=== PATIENT | male | born 1980 | race Caucasian/White ===

== ENCOUNTER 2022-12-14 15:36 | Emergency (ER) | payer OTHER, SELFPAY ==
--- NOTE | ~2022-12-14 | XR_ITS ---
XR ankle LT min 3V 12/14/2022 15:59 Indication: Status post fall from curb. Left lateral ankle pain and swelling Procedure: 4 views left ankle Comparison: No prior studies for comparison. Findings: There is an avulsion fracture from the distal aspect of the fibula. Large amount of lateral soft tissue swelling. Ankle mortise intact. There is a degenerative calcaneal enthesophyte. Talar do me is normal. Impression: 1: Linear avulsion fracture fragment projects adjacent to the distal aspect of the fibula. Large amou nt of adjacent soft tissue swelling. Reviewed, dictated and finalized at location L. Impression: 1: Linear avulsion fracture fragment projects adjacent to the distal aspect of the fibula. Large amount of adjacent soft tissue swelling.
--- NOTE | 2022-12-14 15:40 | ED.LOWEXIN ---
HPI - Extremity Injury (Lower) General Chief Complaint: Extremity Injury, Lower Stated Complaint: lt ankle injury Time Seen by Provider: 12/14/22 16:15 Source: patient, RN notes reviewed and old records reviewed Mode of arrival: ambulatory Limitations: no limitations History of Present Illness HPI Narrative: 42-year-old male presents to the [facility] after rolling his ankle after stepping off a curb. Left lateral ankle pain, swelling, bruising noted. States that he was at school when he stepped off the curb rolling his ankle Inward. pain with standing. Positive pedal pulse. Sensation intact in all 5 toes. Capillary refill under 2 seconds. Denies falling, hitting head. No hip or knee pain. No posterior calf pain. Injury: Left: ankle Related Data Home Medications Medication Instructions Recorded Confirmed cetirizine 10 mg tablet (Zyrtec) 10 mg PO DAILY 01/06/21 12/14/22 simvastatin 5 mg tablet 5 mg PO DAILY 01/06/21 12/14/22 Allergies Allergy/AdvReac Type Severity Reaction Status Date / Time No Known Allergies Allergy Mild Verified 12/14/22 15:50 Review of Systems Review of Systems: All systems reviewed & are unremarkable except as noted in HPI and below Constitutional: Constitutional: Reports no additional constitutional complaints Eyes: Eyes: Reports no additional eye complaints ENT: Reports system reviewed and no additional complaints, except as documented Cardiovascular: Cardiovascular: Reports no additional cardiovascular complaints, Denies chest pain and Denies dyspnea Respiratory: Respiratory: Reports no additional respiratory complaints, Denies chest congestion, Denies cough and Denies dyspnea Gastrointestinal: Gastrointestinal: Reports no additional gastrointestinal complaints, Denies abdominal pain, Denies nausea and Denies vomiting Musculoskeletal: Musculoskeletal: Reports as per HPI, Reports arthralgias ( left lateral ankle) and Reports joint swelling ( left lateral ankle) Integumentary/Breasts: Skin/Breast: Reports system reviewed and no additional complaints, except as docu Neurologic: Reports system reviewed and no additional complaints, except as documented Psychiatric: Psychiatric: Reports no additional psychiatric complaints Allergic/Immunologic: Allergic/Immunologic: Reports no additional allergic/immunologic complaints [facility] Family History Family History Father Heart problem Mother Hypertension Social History Social History Alcohol intake: current Substance use: never Comments At the time of my signature, I reviewed and agree with the nursing past medical, surgical, social, and family history. There is no relevant family history pertinent to the patient complaint. Exam Const: General: cooperative, healthy appearing, comfortable, no acute distress, well developed, alert and well nourished Nutritional Appearance: well nourished Orientation/consciousness: patient oriented x3 Limitations: no limitations HENMT: Head: normal to inspection Ears: hearing grossly normal bilaterally and external ears normal Face/Nose/Sinus: Normal external nose present, Normal nares present, Normal nasal mucous membranes and turbinates present and normal facial exam Face and sinus: normal facial exam Eyes: General: appearance normal, both eyes and all related structures Alignment and Position: alignment normal Periorbital: periorbital findings normal Pupils: Equal, round and reactive pupils present EOM: EOMs intact bilaterally Neck: Neck: normal visual inspection, full ROM, no lymphadenopathy and no meningeal signs Chest: Chest palpation & inspection: normal inspection of the chest Resp: Effort & Inspection: normal respiratory effort and able to speak in complete sentences Cardio: Rate: regular rate Rhythm: regular rhythm Back/Spine/Pelvis: Cervical Spine: cervical ROM no
[2022-12-14 15:51] VITALS: BP 144/97; PULSE 82; RESP 16; TEMP 37; O2SAT 98
== END 2022-12-14 17:20 | disposition home or self-care (01) ==
PROVIDERS: Emergency Provider Nurse Practitioner
DX: S82.832A Other fracture of upper and lower end of left fibula, initial encounter for closed fracture (principal); X50.9XXA Other and unspecified overexertion or strenuous movements or postures, initial encounter
CPT/HCPCS: 29515; 73610; 99214; G0463

== ENCOUNTER 2024-07-12 09:44 | Emergency (ER) | payer OTHER, SELFPAY ==
--- NOTE | 2024-07-12 09:49 | ED_ITS ---
HPI - Headache General Chief Complaint: Headache Stated Complaint: ELEVATED BLOOD PRESSURE/HEADACHE Time Seen by Provider: 07/12/24 09:50 Source: patient Mode of arrival: ambulatory Limitations: no limitations History of Present Illness HPI Narrative: Avel is a 44-year-old male patient presenting to the clinic today with complaints of a frontal headache and elevated blood pressure. He reports his work sent him over for evaluation. His blood pressure at work was 170 systolic. He reports he has been under lot of stress here recently. Appointment with his doctor next week for his annual wellness. Has had history of elevated blood pressure and has spoke to his primary care doctor about this over the past 5 years. His primary care doctor said whenever he is ready he can put him on high blood pressure medications. Patient stated that when he is at home his blood pressure normally runs 120 systolic however he suffers from white coat syndrome and his pressure always goes up in the office usually in the 140s systolic. He denies any visual changes, chest pain, shortness breath, or dizziness at this time. Rates his headache a 2/10 at this time. History of hyperlipidemia Related Data Home Medications ?Medication ?Instructions ?Recorded ?Confirmed ?Last Taken ?Type cetirizine 10 mg tablet (Zyrtec) 10 mg PO DAILY 01/06/21 01/27/23 Unknown History simvastatin 5 mg tablet 5 mg PO DAILY 01/06/21 01/27/23 Unknown History Allergies Allergy/AdvReac Type Severity Reaction Status Date / Time No Known Allergies Allergy Mild Verified 01/27/23 11:41 Review of Systems Review of Systems: Pertinent positives per HPI. Patient denies any fever, chills, rash, visual changes, dizziness, cough, runny nose, sore throat, shortness of breath, chest pain, palpitations, nausea, vomiting, diarrhea, constipation, abdominal pain, or any urinary issues. 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 There is no relevant family history pertinent to the patient complaint. Exam Narrative: General: Well-developed, well nourished, in no apparent distress Head: Normocephalic, atraumatic Eyes: Pupils equally round and reactive to light bilaterally, EOM intact, sclera and conjunctive clear, no discharge, lids normal Ears: TMs intact and clear, ear canals clear, no drainage, grossly hearing normal. Nose: Nares patent, no discharge, no inflammation, no sinus tenderness. Mouth: Oropharynx without lesions or masses, good dentition, MMM. Tongue midline, even rise and fall of uvula Neck: Supple, trachea midline, no enlargement of anterior or posterior cervical nodes, no thyroid masses or goiter palpable. Cardio: Regular rate and rhythm, s1 and s2 normal, no murmur appreciated. Resp: Clear to auscultation bilaterally anteriorly and posteriorly, no rhonchi, rales, wheezing or rubs Musculoskeletal: No deformity, non-tender to palpation, grossly normal range of motion, muscle strength strong and equal, peripheral pulse strong, no edema, no cyanosis, normal gait and station Neuro: Alert and oriented x4 with normal speech, no focal deficits, cranial nerves I through XII intact, muscle strength 5 out of 5, sensation intact bilaterally. Course Course Emergency Course: Portions of this record may have been created with voice recognition software. Level of Care: Express Care Visit Vital Signs Vital signs: Vital Signs Temperature 36.8 C 07/12/24 09:56 Pulse Rate 89 07/12/24 09:56 Respiratory Rate 16 07/12/24 09:56 Blood Pressure 161/102 H 07/12/24 09:56 Pulse Oximetry 100 07/12/24 09:56 Temperature 36.8 C 07/12/24 09:56 Pulse Rate 89 07/12/24 09:56 Respiratory Rate 16 07/12/24 09:56 Blood Pressure 161/102 H 07/12/24 09:56 Pulse Oximetry 100 07/12/24 09:56 Vital signs reviewed MDM - Headache MDM Narrative Medical decision making narrative: At the time of visit patient is resting comfortably on the exam table. Patient appears to be nontoxic. Plan: I suspect patient has acute headache due to elevated blood pressure and stress. Recommend following up with his doctor as scheduled this week to discu ss potential anti hypertension medications. Recommend he keep a blood pressure diary to take to his office appointment. Manual blood pressure was 142/86. Practice relaxation techniques, exercise, and diet restrictions as discussed. Supportive measures were discussed with the patient and they voiced understanding discharge instructions and agrees to treatment plan. Return precautions reviewed Differential Diagnosis Differential diagnosis: Likely migraine, tension headache, subarachnoid hemorrhage, headache, sinusitis and other (Vascular headache, hypertension, stress) Discharge Plan Discharge Clinical Impression: Elevated blood pressure reading in office without diagnosis of hypertension, Stress at work Headache Qualifiers: Headache type: other vascular headache Qualified Code(s): G44.1 - Vascular headache, not elsewhere classified Patient Disposition: Home, Self-Care Condition: Stable Instructions: Antibiotic Form, Stress (ED), Acute Headache (ED), Relaxation and Meditation (ED), Hypertension (ED), Breathing Techniques (ED) Additional Instructions: Electronic blood pressure is 161/102. Manual blood pressure was 142/86 Keep a diary of your blood pressure as discussed May take Tylenol as needed for headache May try relaxation techniques to help reduce stress at work Follow up with Dr. Hager as scheduled You have an elevated blood pressure in the clinic today and I recommend follow- up with primary care physician to have this reevaluated within the next week if symptoms persist. [place] [employer] guidelines state that normal blood pressure is 120/80 or less. Anything over 120/80 is considered elevated and should be monitored. You may need to decrease you salt intake and eat a heart healthy diet to help lower you blood pressure, other treatments would include decreasing stress, exercise for 30 minutes daily, weight loss, stop caffeine, and quit smoking. Your primary care provider can determine whether you need to start ant ihypertensive medications. Untreated high blood pressure can cause dizziness, headaches, visual changes, blindness, kidney failure, stroke, heart attack, and male impotence. Patient Language: Persian Prescriptions: No Action ibuprofen 600 mg tablet 600 mg PO TID PRN (Reason: fever or pain) Qty: 30 0RF cetirizine [Zyrtec] 10 mg tablet 10 mg PO DAILY simvastatin 5 mg tablet 5 mg PO DAILY Follow-up/Referrals: Alley,Konstantin Molina MD [Primary Care Provider] - Stand Alone Forms: Work/School Release IP Time of Disposition: 10:09 Quality NIHSS Nursing Documentation ED NIHSS nursing documentation: reviewed/agree
[2024-07-12 09:56] VITALS: BP 161/102; PULSE 89; RESP 16; TEMP 36.8; O2SAT 100
[2024-07-12 10:20] VITALS: BP 142/86
== END 2024-07-12 10:20 | disposition home or self-care (01) ==
PROVIDERS: Emergency Provider Nurse Practitioner Family; PCP Family Medicine
DX: R03.0 Elevated blood-pressure reading, without diagnosis of hypertension (principal); F43.9 Reaction to severe stress, unspecified; G44.1 Vascular headache, not elsewhere classified; E78.5 Hyperlipidemia, unspecified
CPT/HCPCS: 99213; G0463